=== PATIENT | female | born 1975 | race Caucasian/White ===

== ENCOUNTER 2016-09-28 07:05 | Emergency (ER) | payer SELFPAY ==
[2016-09-28] MEDS ORDERED: fentaNYL 100 MCG/2 ML INJ IVP ONE (07:30)
[2016-09-28] MEDS ORDERED: ONDANSETRON 4 MG/2 ML VIAL IVP ONE (07:30)
[2016-09-28] MEDS ORDERED: fentaNYL 100 MCG/2 ML INJ ONE (07:42)
[2016-09-28] MEDS ORDERED: ONDANSETRON 4 MG/2 ML VIAL ONE (07:42)
[2016-09-28] MEDS ORDERED: KETOROLAC 15 MG/1 ML SDV IVP ONE (08:40)
[2016-09-28] MEDS ORDERED: KETOROLAC 15 MG/1 ML SDV ONE (09:00)
[2016-09-28 10:42] VITALS: RESP 18; TEMP 98.4
[2016-09-28 10:43] VITALS: BP 128/85; PULSE 86; O2SAT 93
--- NOTE | 2016-09-28 11:19 | EDV ---
[f rep st] EMERGENCY DEPARTMENT REPORT CHIEF COMPLAINT: Abdominal pain. HISTORY OF PRESENT ILLNESS: The patient is a generally healthy 41-year-old female status post parti al hysterectomy who presents with left lower quadrant pain. It began abruptly last night. She orig inally rates it as an 8/10 in severity. The pain was stabbing and located in her left lower quadran t. It was severe enough that she was unable to stand upright. She tried a heating pad with some re lief. This morning the pain persists. It is now dull and she notices that it extends through into her back. She has had nausea, but no vomiting. She denies diarrhea or constipation. She has not n oticed blood in her stool. She denies dysuria, urinary urgency, and urinary frequency. She has not seen blood in her urine. She reports a history of kidney stones and ovarian cysts. REVIEW OF SYSTEMS: A 10-point review of systems was performed and was negative aside from items men tioned in History of Present Illness. PAST MEDICAL HISTORY: 1. Goiter, status post thyroidectomy, currently on thyroid replacement. 2. Ovarian cysts. 3. Ureterolithiasis. 4. Partial hysterectomy 10 years ago, ovaries remain. 5. Depression. PRIMARY CARE PHYSICIAN: Annemarie Ferguson. SOCIAL HISTORY: She lives with her . She works as a CPA. She smokes 3/4 pack of cigarettes daily. She drinks alcohol socially. PHYSICAL EXAMINATION: GENERAL: She appears mildly uncomfortable. VITAL SIGNS: Afebrile. HEENT: Conjunctivae clear. Anicteric. Oropharynx moist without erythema or swelling. NECK: No lymphade nopathy. HEART: Slightly tachycardic. Regular. LUNGS: Clear to auscultation. No wheezes, rales , or rhonchi. ABDOMEN: Tender in both lower quadrants with some involuntary guarding in the right lower quadrant on first exam. However, she reports that her pain is actually on the left side and w ith palpation of the left lower quadrant she states, "Yes, that's where it hurts." No apparent reyna iation. Bowel sounds are present. BACK: No CVA tenderness. SKIN: Warm and dry, normal color. N o rashes on exposed skin. NEUROLOGIC: Awake and alert. Moving all 4 extremities easily and equall y. PSYCHIATRIC: No agitation. Normal affect. EMERGENCY DEPARTMENT COURSE: Generally healthy female with bilateral lower quadrant tenderness, wor se on the left per her report. She has a history of ovarian cysts. She has had a partial hysterect erica. She also has a history of kidney stones. CBC and basic metabolic panel are within normal limi ts. White count is normal. Urinalysis shows 2+ blood in the urine. There is also 2+ bacteria and 2+ epithelial cells. She has no urinary tract signs or symptoms, and I do not think that she has a urinary tract infection. I think that this is a "dirty urine" with epithelial cells present. The h ematuria though is suggestive of kidney stone. I think that is the most likely explanation for her pain. She was re-examined at 8:05 a.m. She felt better after receiving 75 mcg of fentanyl IV and 4 mg of Zofran IV. On re-examination, she continues with bilateral lower quadrant tenderness, worse on the left. No guarding or peritoneal signs. At the time of third examination, she continues to feel bet ter, although has pain on palpation. We discussed imaging studies to assess for kidney stone. We a lso discussed the possibility of this being an ovarian cyst, in which case an ultrasound would be th e preferred imaging study. At this point, she feels comfortable returning home and forgoing any rad iographic investigations. She does not have peritoneal signs. I doubt that this is appendicitis, a lthough she did have some tenderness on the right. She understands that appendicitis remains in the differential diagnoses. We reviewed the danger signs that should prompt her to be re-evaluated imm ediately. She was given 15 mg of IV Toradol prior to her discharge. She is given prescriptions for Zofran and for [place], dispense 10. She has a strainer and will strain her urine. CLINICAL IMPRESSIONS: 1. Lower abdominal pain. 2. Ureterolithiasis. She was discharged to home in stable, improved condition. She will follow up with her primary care physician, Annemarie Ferguson, as needed. She will return to the emergency department if she fails to i mprove or if she is worse in any way. /[id number]/MODL
[2016-09-28 12:36] LABS: COLOR YELLOW; LEUKOCYTE ESTERASE,URINE NEGATIVE (NEGATIVE); NITRITE,URINE NEGATIVE (NEGATIVE); PH,URINE 5.5 (5.0-7.5)
[2016-09-28 12:37] LABS: ANION GAP 15 mEq/L (8-16); CARBON DIOXIDE 22 mEq/l (22-31); CHLORIDE 102 mEq/L (97-110); CREATININE 0.8 mg/dL (0.6-1.0); GLOMERULAR FILTRATION RATE > 60; GLUCOSE 92 mg/dL (70-100); POTASSIUM 4.7 mEq/L (3.5-5.2); SODIUM 139 mEq/L (134-144)
[2016-09-28 12:38] LABS: % IMMATURE GRANULYOCYTES 0.8 % (0.0-1.1); ABSOLUTE IMMATURE GRANULOCYTES 0.05 10^3/uL (0.00-0.10); ADD DIFF? NO; ADD MORPH? NO; ADD SCAN? NO; ATYPICAL LYMPHOCYTE FLAG 10 (0-99); FRAGMENT RBC FLAG 0 (0-99); HEMATOCRIT 43.1 % (38.0-47.0); HEMOGLOBIN 14.9 g/dL (12.6-16.3); LEFT SHIFT FLG 0 (0-99); LIPEMIA HEMOLYSIS FLAG 90 (0-99); MEAN CELL HEMOGLOBIN 31.8 pg (27.9-34.1); MEAN CELL HEMOGLOBIN CONCENTR. 34.6 g/dL (32.4-36.7); MEAN CELL VOLUME 91.9 fL (81.5-99.8); MEAN PLATELET VOLUME 9.8 fL (8.7-11.7); PLATELET CLUMPS FLAG 0 (0-99); PLATELET COUNT 366 10^3/uL (150-400); RED BLOOD CELL COUNT 4.69 10^6/uL (4.18-5.33); RED CELL DISTRIBUTION WIDTH 13.8 % (11.5-15.2)
[2016-09-28 12:40] LABS: BACTERIA 2+ /hpf (NONE SEEN)
== END 2016-09-28 09:25 | disposition home or self-care (01) ==
LOC: CED 07:05
DX: N20.1 Calculus of ureter (principal)
CPT/HCPCS: 80048-PO; 81003-PO; 81015-PO; 85025-PO; 96374; J1885; J2405; J3010

== ENCOUNTER 2016-09-30 15:49 | Emergency (ER) | payer SELFPAY ==
[2016-09-30 15:59] VITALS: RESP 18; TEMP 98.8
[2016-09-30 16:22] LABS: COLOR YELLOW; LEUKOCYTE ESTERASE,URINE NEGATIVE (NEGATIVE); NITRITE,URINE NEGATIVE (NEGATIVE)
[2016-09-30] MEDS ORDERED: HYDROmorphONE/DILAUDID 1 MG/ML SYR IVP ONE (16:24)
[2016-09-30] MEDS ORDERED: NS 1,000 ML IV ONE (16:24)
[2016-09-30 16:28] LABS: RBC,URINE OCCASIONAL /hpf (0-3); WBC,URINE NONE SEEN /hpf (0-3)
[2016-09-30] MEDS ORDERED: ONDANSETRON 4 MG/2 ML VIAL IVP ONE (16:28)
[2016-09-30 16:29] LABS: BACTERIA TRACE /hpf (NONE SEEN)
[2016-09-30 16:47] LABS: % IMMATURE GRANULYOCYTES 0.5 % (0.0-1.1); ABSOLUTE IMMATURE GRANULOCYTES 0.05 10^3/uL (0.00-0.10); ADD DIFF? NO; ADD MORPH? NO; ADD SCAN? NO; ATYPICAL LYMPHOCYTE FLAG 10 (0-99); FRAGMENT RBC FLAG 0 (0-99); HEMATOCRIT 43.1 % (38.0-47.0); HEMOGLOBIN 14.7 g/dL (12.6-16.3); LEFT SHIFT FLG 0 (0-99); LIPEMIA HEMOLYSIS FLAG 90 (0-99); MEAN CELL HEMOGLOBIN 31.4 pg (27.9-34.1); MEAN CELL HEMOGLOBIN CONCENTR. 34.1 g/dL (32.4-36.7); MEAN CELL VOLUME 92.1 fL (81.5-99.8); MEAN PLATELET VOLUME 9.8 fL (8.7-11.7); PLATELET CLUMPS FLAG 0 (0-99); PLATELET COUNT 371 10^3/uL (150-400); RED BLOOD CELL COUNT 4.68 10^6/uL (4.18-5.33); RED CELL DISTRIBUTION WIDTH 13.7 % (11.5-15.2)
[2016-09-30 16:58] LABS: CALCIUM 9.4 mg/dL (8.5-10.4); CREATININE 1.1 mg/dL (0.6-1.0); POTASSIUM 4.1 mEq/L (3.5-5.2)
--- NOTE | 2016-09-30 17:10 | EDPHY ---
H & P Stated Complaint: Suprapubic pain x 4 days worsening today. Seen at [facility] [place] Time Seen by Provider: 09/30/16 16:09 HPI/ROS: This patient reports abrupt onset of left lower abdominal pain on September 27 3 days prior to this visit. She presented on September 28 here was seen by Dr. Hills at that time with mild hematuria and a few leukocytes in association with her pain that seemed characteristic of ureteral colic. She had a prior history of ureteral colic, normal CBC at that time, no fever no leukocytosis on her CBC or other concerning findings and had a normal creatinine. They decided to hold on imaging treat her empirically with analgesics and fluids. However she reports worsening of her pain. She has been taking 800 mg of ibuprofen every 8 hours with the last dose 2 hours prior to arrival. Her peak intensity has been severe. Currently it is 7/10 after the ibuprofen. She also has taken some Orion that she has not taken any today. She describes that the pain went from feeling aching in nature to "feeling like it is on fire." The pain worsens with movement. This also slightly worse with a seated position. It does radiate to her left flank. She has associated nausea but no vomiting. ROS: No fevers or chills. No other constitutional symptoms. HEENT: No complaints pulmonary: No cough shortness of breath. GI: No upper belly pain. Normal bowel movements. She still tolerating p.o. intake. : No significant dysuria. She reports that it does not feel like a UTI. 10 point ROS is otherwise negative. Source: Patient Exam Limitations: No limitations - Personal History LMP (Females 10-55): Hysterectomy Current Tetanus/Diphtheria Vaccine: Unsure Current Tetanus Diphtheria and Acellular Pertussis (TDAP): Unsure - Medical/Surgical History PMH: Past surgical history of partial hysterectomy. She still has her ovaries. Ovarian cyst Ureteral stones Hx Asthma: No Hx Chronic Respiratory Disease: No Hx Diabetes: No Hx Cardiac Disease: No Hx Renal Disease: No Hx Cirrhosis: No Hx Alcoholism: No Hx HIV/AIDS: No Hx Splenectomy or Spleen Trauma: No Other PMH: HYPOTHYROID, HYST, ANXIETY, DEPREESION, C/S - Family History Significant Family History: No pertinent family hx - Social History Smoking Status: Current every day smoker Alcohol Use: Occasionally Drug Use: None - Physical Exam Exam: General Appearance: Alert, no distress. Eyes: Pupils equal and round no pallor or injection. ENT, Mouth: Mucous membranes moist. Respiratory: There are no retractions, lungs are clear to auscultation. Cardiovascular: Regular rate and rhythm. Gastrointestinal: Normoactive bowel sounds. Soft, moderate left lower quadrant tenderness with no guarding or rebound. Back: No CVA tenderness Neurological: GCS 15 with no focal deficits. Skin: Warm and dry, no rashes. Musculoskeletal: Neck is supple nontender. Extremities are symmetrical, full range of motion. Psychiatric: Mood and affect normal. DIFFERENTIAL DIAGNOSIS: After history and physical exam differential diagnosis was considered for ureteral stone, UTI, ovarian cyst, diverticulitis, ovarian mass, GI tumor Constitutional: Initial Vital Signs Temperature (C) 37.1 C 09/30/16 15:51 Heart Rate 101 H 09/30/16 15:51 Respiratory Rate 18 09/30/16 15:51 Blood Pressure 140/104 H 09/30/16 15:51 O2 Sat (%) 94 09/30/16 15:51 O2 Delivery Mode Room Air Allergies/Adverse Reactions: Penicillins Allergy (Severe, Verified 09/30/16 15:59) Anaphylaxis Home Medications: Medication Instructions Recorded Orion 5/325 (*) 09/30/16 Paxil 09/30/16 Synthroid 09/30/16 Zofran 09/30/16 Medical Decision Making - Diagnostics Imaging Results: Imaging Impressions Abdomen/Pelvis CT 09/30/16 16:59 Impression: No source for left flank pain identified. Results called to Dr. Ba. Attention: This CT examination is specifically designed to evaluate patients who are clinically suspected of having acute obstructive uropathy. This examination does not use radiographic contrast, and as such, provides only a limited evaluation of the abdomen, pelvis and retroperitoneum. If there is further clinical suspicion for pathological conditions other than obstructive uropathy, a complete CT evaluation of the abdomen and pelvis utilizing intravenous, oral, and rectal contrast should be considered. General information for patients regarding this examination can be found at [email or web address]. If you have questions or comments about this report, please contact me at [phone] (hospital) or [phone] (cell). Imaging: Discussed imaging studies w/ print producer Radiologist ED Course/Re-evaluation: IV normal saline bolus Dilaudid 1 mg IV with relief down to 3 or 4/10 pain Patient's symptoms continue to improve. I discussed her microscopic hematuria, normal CBC and chemistries and normal CT abdomen pelvis with her. Discussion: Given slight increase in creatinine and persistent microscopic hematuria, the patient may have passed ureteral stone. She feels significantly improved at the time of discharge. We ruled out UTI with repeat urinalysis without findings consistent with UTI, she does not have a surgical abdomen, doubt infectious etiology given normal CBC and no fever. She except slightly hyperactive bowel sounds counseled regarding the possibility of having crampy pain from increased gut motility from either a food intolerance or viral illness but I do not think this is likely the source of her pain. I advised her to hold off on further opiates for control of her pain using ibuprofen Tylenol since her CT and workup today is benign. She will follow up with primary care physician for any ongoing symptoms. - Data Points Laboratory Results: Laboratory Results 09/30/16 16:42 09/30/16 16:42 09/30/16 09/30/16 09/30/16 16:42 16:42 15:55 WBC 9.18 10^3/uL 10^3/uL (3.80-9.50) RBC 4.68 10^6/uL 10^6/uL (4.18-5.33) Hgb 14.7 g/dL g/dL (12.6-16.3) Hct 43.1 % % (38.0-47.0) MCV 92.1 fL fL (81.5-99.8) MCH 31.4 pg pg (27.9-34.1) MCHC 34.1 g/dL g/dL (32.4-36.7) RDW 13.7 % % (11.5-15.2) Plt Count 371 10^3/uL 10^3/uL (150-400) MPV 9.8 fL fL (8.7-11.7) Neut % (Auto) 64.0 % % (39.3-74.2) Lymph % (Auto) 28.0 % % (15.0-45.0) [place] % (Auto) 6.0 % % (4.5-13.0) Eos % (Auto) 0.8 % % (0.6-7.6) Baso % (Auto) 0.7 % % (0.3-1.7) Nucleat RBC Rel Count 0.0 % % (0.0-0.2) Absolute Neuts (auto) 5.88 10^3/uL 10^3/uL (1.70-6.50) Absolute Lymphs (auto) 2.57 10^3/uL 10^3/uL (1.00-3.00) Absolute Monos (auto) 0.55 10^3/uL 10^3/uL (0.30-0.80) Absolute Eos (auto) 0.07 10^3/uL 10^3/uL (0.03-0.40) Absolute Basos (auto) 0.06 10^3/uL 10^3/uL (0.02-0.10) Absolute Nucleated RBC 0.00 10^3/uL 10^3/uL (0-0.01) Immature Gran % 0.5 % % (0.0-1.1) Immature Gran # 0.05 10^3/uL 10^3/uL (0.00-0.10) Sodium 139 mEq/L mEq/L (134-144) Potassium 4.1 mEq/L mEq/L (3.5-5.2) Chloride 101 mEq/L mEq/L (97-110) Carbon Dioxide 26 mEq/l mEq/l (22-31) Anion Gap 12 mEq/L mEq/L (8-16) BUN 11 mg/dL mg/dL (7-23) Creatinine 1.1 mg/dL H mg/dL (0.6-1.0) Estimated GFR 54 Glucose 95 mg/dL mg/dL (70-100) Calcium 9.4 mg/dL mg/dL (8.5-10.4) Urine Color YELLOW Urine Appearance CLEAR Urine pH 7.0 (5.0-7.5) Ur Specific [place] <= 1.005 (1.002-1.030) Urine Protein NEGATIVE (NEGATIVE) Urine Ketones NEGATIVE (NEGATIVE) Urine Blood TRACE H (NEGATIVE) Urine Nitrate NEGATIVE (NEGATIVE) Urine Bilirubin NEGATIVE (NEGATIVE) Urine Urobilinogen 0.2 EU EU (0.2-1.0) Ur Leukocyte Esterase NEGATIVE (NEGATIVE) Urine RBC OCCASIONAL /hpf /hpf (0-3) Urine WBC NONE SEEN /hpf /hpf (0-3) Ur Epithelial Cells TRACE /lpf /lpf (NONE-1+) Urine Bacteria TRACE /hpf H /hpf (NONE SEEN) Urine Glucose NEGATIVE (NEGATIVE) Medications Given: Discontinued Medications Hydromorphone HCl (Dilaudid) 1 mg IVP EDNOW ONE Stop: 09/30/16 16:25 Last Admin: 09/30/16 16:45 Dose: 1 mg Sodium Chloride (Ns) 1,000 mls @ 0 mls/hr IV ONCE ONE; Wide Open PRN Reason: Protocol Stop: 09/30/16 16:25 Last Admin: 09/30/16 16:45 Dose: 1,000 mls Ondansetron HCl (Zofran) 4 mg IVP EDNOW ONE Stop: 09/30/16 16:29 Last Admin: 09/30/16 16:46 Dose: 4 mg Departure - Departure Disposition: Home, Routine, Self-Care Clinical Impression: LLQ abdominal pain, Microscopic hematuria Condition: Good Instructions: Abdominal Pain (ED) Additional Instructions: Diagnosis: 1. Left lower quadrant abdominal pain 2. Microscopic hematuria You may have passed a kidney stone. Your CT scan today appears normal. You had a microscopic amount of blood in her urine but otherwise looks normal without evidence of infection. Your blood count is normal, your blood chemistries are also normal. Plan: Ibuprofen Tylenol if needed for discomfort. Drink plenty fluids Follow up with primary care physician if you have any recurrent abdominal pain. Referrals: Annemarie Ferguson PA [Primary Care Provider] - As per Instructions
[2016-09-30 17:45] VITALS: O2SAT 96
[2016-09-30 17:57] VITALS: BP 147/65; PULSE 78
== END 2016-09-30 17:56 | disposition home or self-care (01) ==
LOC: CED 15:49
DX: R10.32 Left lower quadrant pain (principal); R31.29 Other microscopic hematuria; F17.200 Nicotine dependence, unspecified, uncomplicated; Z90.710 Acquired absence of both cervix and uterus
CPT/HCPCS: 74176-PO; 80048-PO; 81003-PO; 81015-PO; 85025-PO; 96374; J1170; J2405

== ENCOUNTER → 2018-09-05 | Outpatient (CLI) | payer OTHER | LOC: FIMAGING 16:00 | PROVIDERS: ATTEND Nurse Practitioner Adult Health | DX: M25.531 Pain in right wrist (principal) ==